=== PATIENT | female | born 1970 | race Caucasian/White ===

== ENCOUNTER 2019-12-27 17:30 | Emergency (ER) | payer SELFPAY ==
[~2019-12-27] VITALS: Ht 162.6 cm; Wt 72.6 kg
[2019-12-27 17:52] VITALS: BP 123/67
--- NOTE | 2019-12-27 18:12 | NUR ---
PT AMB TO ER BED 3
--- NOTE | 2019-12-27 18:27 | NUR ---
DR RYAN EVALUATING PT @ BEDSIDE
--- NOTE | 2019-12-27 18:45 | NUR ---
Patient discharged with v/s stable. Written and verbal after care instructions given and explained. Patient alert, oriented and verbalized understanding of instructions. Ambulatory with steady gait. All questions addressed prior to discharge. ID band removed. Patient advised to follow up with PMD. Rx of ZOFRAN ODT, PEPCID, CLARITIN D given. Patient educated on indication of medication including possible reaction and side effects. Opportunity to ask questions provided and answered.
--- NOTE | 2019-12-27 18:45 | NUR ---
NO NURSING CARE/SERVICES RENDERED. PT SEEN AND DISCHARGED BY DR. RYAN.
[2019-12-27 18:46] VITALS: BP 123/67
== END 2019-12-27 18:45 | disposition home or self-care (01) ==
LOC: MED 17:30
DX: J32.1 Chronic frontal sinusitis (principal); K29.70 Gastritis, unspecified, without bleeding
CPT/HCPCS: 99283